=== PATIENT | male | born 1955 | race Two or more races ===

== ENCOUNTER → 2017-11-06 | Outpatient (CLI) | payer BC ==
[~2017-11-06] MED LIST: FERROUS SULFAT325 MG PO; FISH OIL PO; FLOMAX0.4 MG PO; METFORMIN HCL500 MG PO
[2017-11-07 09:21] LABS: BASOPHILS # (AUTO) 0.1 (0.0-0.1); BASOPHILS % 0.9 % (0.0-1.0); EOSINOPHILS # (AUTO) 0.2 (0.0-0.4); HEMATOCRIT 37.6 % (38.2-49.6); HEMOGLOBIN 12.9 g/dL (14.0-18.0); LYMPHOCYTES # (AUTO) 2.3 (1.0-3.2); LYMPHOCYTES % 28.3 % (18.0-39.1); MEAN CORPUSCULAR HEMOGLOBIN 29.5 pg (28-32); MEAN CORPUSCULAR HGB CONC 34.3 g/dL (31-35); MONOCYTES # (AUTO) 0.7 (0.2-0.8); MONOCYTES % 8.7 % (4.4-11.3); NEUTROPHILS # (AUTO) 4.8 (2.1-6.9); NEUTROPHILS % 58.6 % (38.7-80.0); PLATELET COUNT 216 x10e3/uL (140-360); RED BLOOD COUNT 4.37 x10e6/uL (4.3-5.7); RED CELL DISTRIBUTION WIDTH 13.4 % (11.7-14.4)
[2017-11-07 09:53] LABS: ALANINE AMINOTRANSFERASE 13 IU/L (0-55); ALBUMIN 3.8 g/dL (3.5-5.0); ALBUMIN/GLOBULIN RATIO 1.2 (0.8-2.0); ALKALINE PHOSPHATASE 39 IU/L (40-150); BLOOD UREA NITROGEN 11 mg/dL (7-26); BUN/CREATININE RATIO 13 (6-25); CALCIUM 9.7 mg/dL (8.4-10.2); CARBON DIOXIDE 27 mmol/L (22-29); CHLORIDE 107 mmol/L (98-107); CHOL/HDL RATIO 4.7 (3.9-4.7); CHOLESTEROL 194 MD/DL (0-199); CREATININE, SERUM 0.85 mg/dL (0.72-1.25); EST GLOMERULAR FILTRATION RATE > 60 ML/MIN (60-); GLUCOSE 111 mg/dL (74-118); HDL CHOLESTEROL 41 MG/DL (40-60); LDL CHOLESTEROL 114 MG/DL (60-130); SODIUM 141 mmol/L (136-145); TRIGLYCERIDES 193 MG/DL (0-149)
== END ==
LOC: LAB 10:02
PROVIDERS: ATTEND Family Medicine
DX: R73.03 Prediabetes (principal); N40.1 Benign prostatic hyperplasia with lower urinary tract symptoms; I10 Essential (primary) hypertension
CPT/HCPCS: 36415; 80053; 80061; 82652; 83036; 85025

== ENCOUNTER → 2018-04-17 | Outpatient (CLI) | payer BC ==
[2018-04-17 10:26] LABS: BASOPHILS # (AUTO) 0.1 (0.0-0.1); BASOPHILS % 0.6 % (0.0-1.0); EOSINOPHILS # (AUTO) 0.3 (0.0-0.4); EOSINOPHILS % 3.9 % (0.0-6.0); HEMATOCRIT 37.4 % (38.2-49.6); HEMOGLOBIN 13.2 g/dL (14.0-18.0); LYMPHOCYTES # (AUTO) 2.4 (1.0-3.2); LYMPHOCYTES % 30.1 % (18.0-39.1); MEAN CORPUSCULAR HEMOGLOBIN 29.7 pg (28-32); MEAN CORPUSCULAR HGB CONC 35.3 g/dL (31-35); MEAN CORPUSCULAR VOLUME 84.2 fL (81-99); MONOCYTES # (AUTO) 0.7 (0.2-0.8); MONOCYTES % 8.5 % (4.4-11.3); NEUTROPHILS # (AUTO) 4.4 (2.1-6.9); NEUTROPHILS % 56.5 % (38.7-80.0); PLATELET COUNT 212 x10e3/uL (140-360); RED BLOOD COUNT 4.44 x10e6/uL (4.3-5.7); RED CELL DISTRIBUTION WIDTH 13.2 % (11.7-14.4)
[2018-04-17 10:56] LABS: ALANINE AMINOTRANSFERASE 17 IU/L (0-55); ALBUMIN 4.2 g/dL (3.5-5.0); ALBUMIN/GLOBULIN RATIO 1.4 (0.8-2.0); ALKALINE PHOSPHATASE 48 IU/L (40-150); BLOOD UREA NITROGEN 12 mg/dL (7-26); BUN/CREATININE RATIO 14 (6-25); CALCIUM 9.5 mg/dL (8.4-10.2); CARBON DIOXIDE 23 mmol/L (22-29); CHLORIDE 106 mmol/L (98-107); CHOL/HDL RATIO 5.4 (3.9-4.7); CHOLESTEROL 190 MD/DL (0-199); CREATININE, SERUM 0.85 mg/dL (0.72-1.25); EST GLOMERULAR FILTRATION RATE > 60 ML/MIN (60-); GLUCOSE 119 mg/dL (74-118); HDL CHOLESTEROL 35 MG/DL (40-60); LDL CHOLESTEROL 116 MG/DL (60-130); SODIUM 141 mmol/L (136-145); TRIGLYCERIDES 193 MG/DL (0-149)
== END ==
LOC: LAB 10:01
PROVIDERS: ATTEND Family Medicine
DX: R73.03 Prediabetes (principal); I10 Essential (primary) hypertension; N40.1 Benign prostatic hyperplasia with lower urinary tract symptoms; Z98.890 Other specified postprocedural states
CPT/HCPCS: 36415; 80053; 80061; 83036; 84152; 84402; 85025

== ENCOUNTER → 2018-08-29 | Outpatient (CLI) | payer BC ==
[2018-08-29 10:01] LABS: BASOPHILS # (AUTO) 0.1 (0.0-0.1); BASOPHILS % 0.9 % (0.0-1.0); EOSINOPHILS # (AUTO) 0.2 (0.0-0.4); EOSINOPHILS % 2.6 % (0.0-6.0); HEMOGLOBIN 12.8 g/dL (14.0-18.0); LYMPHOCYTES % 25.7 % (18.0-39.1); MEAN CORPUSCULAR HGB CONC 33.7 g/dL (31-35); MONOCYTES # (AUTO) 0.7 (0.2-0.8); MONOCYTES % 9.2 % (4.4-11.3); NEUTROPHILS # (AUTO) 4.8 (2.1-6.9); NEUTROPHILS % 61.3 % (38.7-80.0); PLATELET COUNT 215 x10e3/uL (140-360); RED BLOOD COUNT 4.42 x10e6/uL (4.3-5.7); RED CELL DISTRIBUTION WIDTH 13.4 % (11.7-14.4)
[2018-08-29 10:24] LABS: ALANINE AMINOTRANSFERASE 22 IU/L (0-55); ALBUMIN 4.1 g/dL (3.5-5.0); ALBUMIN/GLOBULIN RATIO 1.7 (0.8-2.0); ALKALINE PHOSPHATASE 40 IU/L (40-150); ANION GAP 14.5 mmol/L (8-16); BLOOD UREA NITROGEN 12 mg/dL (7-26); BUN/CREATININE RATIO 14 (6-25); CALCIUM 9.3 mg/dL (8.4-10.2); CARBON DIOXIDE 25 mmol/L (22-29); CHLORIDE 103 mmol/L (98-107); CREATININE, SERUM 0.85 mg/dL (0.72-1.25); EST GLOMERULAR FILTRATION RATE > 60 ML/MIN (60-); GLUCOSE 115 mg/dL (74-118); LIPASE 63 U/L (8-78); POTASSIUM 4.5 mmol/L (3.5-5.1); SODIUM 138 mmol/L (136-145)
== END ==
LOC: LAB 09:36
PROVIDERS: ATTEND Family Medicine
DX: R73.03 Prediabetes (principal); I10 Essential (primary) hypertension; N40.1 Benign prostatic hyperplasia with lower urinary tract symptoms; Z98.890 Other specified postprocedural states
CPT/HCPCS: 36415; 80053; 83036; 83690; 84152; 84402; 85025

== ENCOUNTER → 2018-12-26 | Day surgery (SDC) | payer BC ==
[~2018-12-26] MED LIST changes: +FENTANYL CITRATE/PF 100MCG/2 ML INJ ONE; +FERROUS SULFAT325 M1 PO; +FINASTERIDE5 MG PO; +HYOSCYAMINE SULFATE 0.5 MG/ML INJ ONE; +LISINOPRIL2.5 MG PO; +MIDAZOLAM HCL 2 MG/2 ML VIAL ONE; +PROPOFOL IV EMULSION 10 MG/ML 50 ML VIAL ONE
--- OUTSIDE RECORDS SUMMARY | 2018-12-26 05:59 | XMS REPORT ---
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 Assessment Benign non-nodular prostatic hyperplasia with lower urinary tract symptoms N40.1 Active Assessment Other specified postprocedural states Z98.890 Active Problem HTN (hypertension), benign I10 Active Problem Benign non-nodular prostatic hyperplasia with lower urinary tract symptoms N40.1 Active Problem Personal history of colonic polyps Z86.010 Active Assessment Pre-diabetes R73.03 Active Assessment HTN (hypertension), benign I10 Active Problem 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 Problem Pre-diabetes R73.03 Active Medications Medication Code System Code Instructions Start Date End Date Status Dosage Tamsulosin HCl [facility] 29733615956 0.4MG Orally Once a day May 07, 2018 Active take two capsules by mouth once daily Proscar [facility] 21584042813 5 MG Orally Once a day Active 1 tablet Iron [facility] 19025124177 325 (65 Fe) MG Orally Once a day Active 1 tablet Flomax [facility] [address]-05 0.4 MG Orally daily Active 2 tablet Metformin HCl [facility] 30165318725 500 MG Orally Twice a day Active 1 tablet with meals Lisinopril [facility] 83370929661 10MG Orally Once a day Active 1 tablet Vital Signs Date/Time: November 08, 2017 BMI 26.15 Index Weight 172 lbs Height 68 in Temperature 98.9 F Blood Pressure Diastolic 90 mm Hg Blood Pressure Systolic 139 mm Hg Results No Known Results Summary Purpose eClinicalWorks Submission
--- OUTSIDE RECORDS SUMMARY | 2018-12-26 05:59 | XMS REPORT ---
Author Stepan Alonso [facility] eClinicalWorks Address Unknown Phone Unavailable Care Team Providers Care Product Promoter Sales Person Name Role Phone Stepan Jaramillo Unavailable Allergies, Adverse Reactions, Alerts Substance Reaction Event Type SEGUNDO inhibitir cough Non Drug Allergy Encounters Encounter Location Date Follow-up for mutiple problems Stepan Jaramillo MD May 10, 2015 Follow-up for mutiple problems Stepan Jaramillo MD Aug 27, 2014 Follow-up for mutiple problems Stepan Jaramillo MD December 15, 2014 Follow-up for mutiple problems Stepan Jaramillo MD Mar 23, 2015 Problems Problem Type Condition ICD-9 Code Onset Dates Condition Status Problem BPH - Hypertrophy (benign) of prostate without urinary obstruction and other lower urinary tract symptoms [LUTS] 600.00 Active Problem Diabetes mellitus without mention of complication, type II or unspecified type, uncontrolled 250.02 Active Problem anemia - Unspecified anemia 285.9 Active Problem anemia - 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 Problem Impotence of organic origin 607.84 Active Problem Laceration of right ear S01.311A Active Problem Mixed hyperlipidemia 272.2 Active Problem anemia - 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.1 Active Problem Other seborrheic dermatitis 690.18 Active Problem Personal history of colonic polyps V12.72 Active Assessment Dandruff L21.0 Active Assessment Laceration of right orbital rim without complication S01.111A Active Assessment Laceration of right ear S01.311A Active Problem HTN Hypertension - Unspecified essential hypertension 401.9 Active Medications Medication Code System Code Instructions Start Date End Date Status Dosage Ferrous Sulfate [facility] [address]-86 325 (65 Fe) MG Orally Once a day December 24, 2013 Active 1 tablet Metformin HCl [facility] 04061202108 500MG Active take one tablet by mouth twice daily with meals Finasteride [facility] [address]-14 5 MG Orally once every night Mar 23, 2015 September 19, 2015 Active 1 tablet Tamsulosin HCl [facility] 08630103840 0.4MG Jun 13, 2015 Active take 2 capsules by mouth daily 30 minutes after the same meal each day Nizoral Unknown 0 2% applied topically as directed Mar 23, 2015 September 19, 2015 Active as directed Testosterone Cypionate [facility] [address]-21 200 MG/ML Intramuscular every 2 weeks December 15, 2014 Active 1 ml Cialis [facility] [address]-43 5 MG Orally Once a day Jun 27, 2013 Active 1 tablet Social History Social History Element Qualifiers Date Reported Tobacco Use: . Status: Never smoker May 10, 2015 Do you drink alcohol? . Status: No May 10, 2015 Vital Signs Date/Time: May 10, 2015 Weight 174.8 lbs Height 67.5 in Temperature 98.6 F Cardiac Monitoring Heart Rate 80 /min Blood Pressure Diastolic 82 mm Hg Blood Pressure Systolic 143 mm Hg Respiratory Rate 18 /min Summary Purpose eClinicalWorks Submission
--- OUTSIDE RECORDS SUMMARY | 2018-12-26 05:59 | XMS REPORT ---
Author Author Mariana Yancey [facility] eClinicalWorks Address Unknown Phone Unavailable Care Team Providers Care Financial Services Intern Name Role Phone Mariana Yancey CP Unavailable Allergies, Adverse Reactions, Alerts Substance Reaction Event Type N.K.D.A. 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 Problem Pre-diabetes R73.03 Active Problem Benign non-nodular prostatic hyperplasia with lower urinary tract symptoms N40.1 Active Assessment Pre-diabetes R73.03 Active Assessment 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 Assessment Encounter to establish care Z76.89 Active Assessment Benign non-nodular prostatic hyperplasia with lower urinary tract symptoms N40.1 Active Medications Medication Code System Code Instructions Start Date End Date Status Dosage Proscar [facility] [address]-94 5 MG Orally Once a day Active 1 [facility] [address] 325 (65 Fe) MG Orally Once a day Active 1 tablet Flomax [facility] [address]-66 0.4 MG Orally daily Mar 13, 2017 Active 1 tablet Metformin HCl [facility] [address]-26 500 MG Orally Twice a day Active 1 tablet with meals Social History Social History Element Qualifiers Date Reported Tobacco Use: . Are you a: never smoker September 14, 2016 Marital Status: . September 14, 2016 Caffeine intake? . Status: No September 14, 2016 Do you exercise? . Answer: Yes September 14, 2016 Do you drink alcohol? . Do you drink alcohol? No September 14, 2016 Occupation: . Employed September 14, 2016 Vital Signs Date/Time: September 14, 2016 Weight 175 lbs Height 68 in Temperature 98.1 F Blood Pressure Diastolic 100 mm Hg Blood Pressure Systolic 156 mm Hg Summary Purpose eClinicalWorks Submission
--- OUTSIDE RECORDS SUMMARY | 2018-12-26 05:59 | XMS REPORT ---
Author Stepan Alonso [facility] eClinicalWorks Address Unknown Phone Unavailable Care Team Providers Care Sales Order Administrator Name Role Phone Stepan Jaramillo Unavailable Encounters Encounter Location Date Follow-up for mutiple problems Stepan Jaramillo MD May 10, 2015 Unknown Stepan Jaramillo MD Jul 07, 2015 Follow-up for mutiple problems Stepan Jaramillo MD Aug 27, 2014 Follow-up for mutiple problems Stepan Jaramillo MD December 15, 2014 Follow-up for mutiple problems Stepan Jaramillo MD Mar 23, 2015 Problems Problem Type Condition ICD-9 Code Onset Dates Condition Status Problem anemia - Unspecified anemia 285.9 Active Problem anemia - 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.1 Active Problem Diabetes mellitus without mention of complication, type II or unspecified type, uncontrolled 250.02 Active Problem Laceration of right ear S01.311A Active Problem anemia - 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 Problem DM II (diabetes mellitus, type II), controlled E11.9 Active Problem Personal history of colonic polyps V12.72 Active Problem Mixed hyperlipidemia 272.2 Active Problem Impotence of organic origin 607.84 Active Problem Other seborrheic dermatitis 690.18 Active Assessment DM II (diabetes mellitus, type II), controlled E11.9 Active Problem HTN Hypertension - Unspecified essential hypertension 401.9 Active Problem BPH - Hypertrophy (benign) of prostate without urinary obstruction and other lower urinary tract symptoms [LUTS] 600.00 Active Social History Social History Element Qualifiers Date Reported Tobacco Use: . Status: Never smoker Aug 13, 2015 Do you drink alcohol? . Status: No Aug 13, 2015 Summary Purpose eClinicalWorks Submission
--- OUTSIDE RECORDS SUMMARY | 2018-12-26 05:59 | XMS REPORT ---
Author Author Mariana Yancey Organization [employer] Address Unknown Phone Unavailable Care Team Providers Care Application Lead Name Role Phone Mariana Yancey CP Unavailable Allergies, Adverse Reactions, Alerts Substance Reaction Event Type N.K.D.A. 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 Assessment Cough R05 Active Assessment Low testosterone in male R79.89 Active Problem HTN (hypertension), benign I10 Active Problem Benign non-nodular prostatic hyperplasia with lower urinary tract symptoms N40.1 Active Problem Personal history of colonic polyps Z86.010 Active Assessment Pre-diabetes R73.03 Active Problem 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 Problem Pre-diabetes R73.03 Active Medications Medication Code System Code Instructions Start Date End Date Status Dosage Metformin HCl [facility] 64261787898 500 MG Orally Twice a day Active 1 tablet with meals Iron [facility] 12113971206 325 (65 Fe) MG Orally Once a day Active 1 tablet Testosterone Cypionate [facility] 67847636234 100 MG/ML Intramuscular q 2 weeks October 22, 2018 Active 1 ml Proscar [facility] 69510447715 5 MG Orally Once a day Active 1 tablet Lisinopril [facility] 97631105999 10MG Orally Once a day Active 1 tablet Flonase [facility] 94745282243 50 MCG/ACT Nasally Once a day Apr 23, 2018 Active 1 spray in each nostril Flomax [facility] [address]-76 0.4 MG Orally daily Active 2 tablet Vital Signs Date/Time: October 22, 2018 BMI 26.15 Index Weight 172 lbs Height 68 in Temperature 98.1 F Blood Pressure Diastolic 85 mm Hg Blood Pressure Systolic 130 mm Hg Results No Known Results Summary Purpose eClinicalWorks Submission
--- OUTSIDE RECORDS SUMMARY | 2018-12-26 05:59 | XMS REPORT | CCD ---
Author Author Auto Generated Organization [facility] Address Unknown Phone Unavailable Care Team Providers Care Head Soft Sugar Operator Name Role Phone Kaylie Yuliya CP Unavailable Miesha Mckinley CP Unavailable Luis Enrique Freeman PaulamaggiemaidaMoni RP [employer], Login CP Unavailable Lopez Ramires CP [phone] Velma Swartz CP [phone] Stepan Jaramillo CP Larisa Mcnair CP Unavailable Allergies, Adverse Reactions, Alerts Substance Reaction Status NKDA ?? Active Medications Medication Instructions Start Date End Date Status metFORmin 500 mg 500 mg, 1 tab, PO, BID, 03/22/2011 ?? Ordered oral tablet Substitution Allowed Sodium Chloride 1,000 mL, Rate: 40 ml/hr, Infuse 03/22/2011 03/22/2011 Discontinued 0.45% IV 1,000 mL over: 25 hr, Route: IV, Total 1,000 mL Volume: 1,000, Start date: 03/22/11 9:43:00, Duration: 30 day, Stop date: 04/21/11 9:42:00 Avodart PO, Daily, Substitution Allowed 03/22/2011 ?? Ordered Vital Signs Most recent to oldest [Reference Range]: 1 2 3 Height 172.72 cm (03/22/2011 09:11:00) ? Systolic Blood Pressure [90-140 mmHg] 123 mmHg (03/22/2011 10:30:00) ?? 125 mmHg (03/22/2011 10:15:00) ?? 126 mmHg (03/22/2011 10:00:00) ?? Diastolic Blood Pressure [60-90 mmHg] 74 mmHg (03/22/2011 10:30:00) ?? 79 mmHg (03/22/2011 10:15:00) ?? 67 mmHg (03/22/2011 10:00:00) ?? Respiratory Rate [14-20 BRMIN] 18 BRMIN (03/22/2011 10:30:00) ?? 18 BRMIN (03/22/2011 10:15:00) ?? 18 BRMIN (03/22/2011 10:00:00) ?? Peripheral Pulse Rate [60-100 bpm] 63 bpm (03/22/2011 10:30:00) ?? 62 bpm (03/22/2011 10:15:00) ?? 74 bpm (03/22/2011 10:00:00) ?? Weight 75.000 kg (03/22/2011 09:11:00) ?
--- OUTSIDE RECORDS SUMMARY | 2018-12-26 05:59 | XMS REPORT ---
Author Author Mariana Yancey Organization [employer]Works Address Unknown Phone Unavailable Care Team Providers Care Real Estate Executive Assistant Name Role Phone Mariana Yancey CP Unavailable Allergies, Adverse Reactions, Alerts Substance Reaction Event Type N.K.D.A. 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 Problem 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 Problem Pre-diabetes R73.03 Active Medications Medication Code System Code Instructions Start Date End Date Status Dosage Metformin HCl [facility][NOTE 3] 78703718832 500 MG Orally Twice a day Active 1 tablet with meals Lisinopril [facility][NOTE 3] 09700241816 10MG Orally Once a day Active 1 tablet Iron [facility][NOTE 3] 02247879748 325 (65 Fe) MG Orally Once a day Active 1 tablet Flomax [facility][NOTE 3] [address]-12 0.4 MG Orally daily Active 2 tablet Flonase [facility][NOTE 3] 00934105950 50 MCG/ACT Nasally Once a day Apr 23, 2018 Active 1 spray in each nostril Tamsulosin HCl [facility][NOTE 3] 65252009793 0.4MG Orally Once a day May 07, 2018 Active take two capsules by mouth once daily Proscar [facility][NOTE 3] 11584199876 5 MG Orally Once a day Active 1 tablet Vital Signs Date/Time: Apr 23, 2018 BMI 25.85 Index Weight 170 lbs Height 68 in Temperature 97.9 F Blood Pressure Diastolic 86 mm Hg Blood Pressure Systolic 155 mm Hg Results No Known Results Summary Purpose eClinicalWorks Submission
--- OUTSIDE RECORDS SUMMARY | 2018-12-26 05:59 | XMS REPORT ---
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
--- OUTSIDE RECORDS SUMMARY | 2018-12-26 05:59 | XMS REPORT ---
Author Author Mariana Yancey Organization [employer]ClinicalWorks Address Unknown Phone Unavailable Care Team Providers Care Revenue Field Auditor Name Role Phone Mariana Yancey CP Unavailable Encounters Encounter Location Date Follow-up for mutiple problems Stepan Jaramillo MD May 10, 2015 Unknown Stepan Jaramillo MD Jul 07, 2015 Unknown [place] September 15, 2016 Follow-up for mutiple problems Stepan Jaramillo [...] lower urinary tract symptoms N40.1 Active Problem Benign non-nodular prostatic hyperplasia with lower urinary tract symptoms N40.1 Active Medications Medication Code System Code Instructions Start Date End Date Status Dosage Flomax [facility] [address]-00 0.4 MG Orally daily December 14, 2016 Active 2 tablet Social History Social History Element Qualifiers Date Reported Tobacco Use: . Are you a: never smoker September 14, 2016 Marital Status: . September 14, 2016 Caffeine intake? . Status: No September 14, 2016 Do you exercise? . Answer: Yes September 14, 2016 Do you drink alcohol? . Do you drink alcohol? No September 14, 2016 Occupation: . Employed September 14, 2016 Summary Purpose eClinicalWorks Submission
--- OUTSIDE RECORDS SUMMARY | 2018-12-26 05:59 | XMS REPORT ---
Author Author Mariana Yancey Organization eClinicalWorks Address Unknown Phone Unavailable Care Team Providers Care Cold Header Name Role Phone Mariana Yancey CP Unavailable Allergies No Known Allergies Problems Problem Type Condition Code Onset Dates Condition Status Assessment Benign non-nodular prostatic hyperplasia with lower urinary tract symptoms N40.1 Active Assessment Other specified postprocedural states Z98.890 Active Assessment Pre-diabetes R73.03 Active Problem HTN (hypertension), benign I10 Active Problem Benign non-nodular prostatic hyperplasia with lower urinary tract symptoms N40.1 Active Problem Personal history of colonic polyps Z86.010 Active Assessment HTN (hypertension), benign I10 Active Problem 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
--- OUTSIDE RECORDS SUMMARY | 2018-12-26 05:59 | XMS REPORT ---
Author Stepan Alonso [facility] eClinicalWorks Address Unknown Phone Unavailable Care Team Providers Care Locksmith Helper Name Role Phone Stepan Jaramillo Unavailable Allergies, [...] ICD-9 Code Onset Dates Condition Status Problem HTN Hypertension - Unspecified essential hypertension 401.9 Active Problem anemia - Unspecified anemia 285.9 Active Problem BPH - Hypertrophy (benign) of prostate without urinary obstruction and other lower urinary tract symptoms [LUTS] 600.00 Active Problem Impotence of organic origin 607.84 Active Problem Other seborrheic dermatitis 690.18 Active Problem anemia - 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 Problem anemia - 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.1 Active Problem Diabetes mellitus without mention of complication, type II or unspecified type, uncontrolled 250.02 Active Problem Personal history of colonic polyps V12.72 Active Problem Mixed hyperlipidemia 272.2 Active Assessment anemia - 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 Assessment BPH - Hypertrophy (benign) of prostate without urinary obstruction and other lower urinary tract symptoms [LUTS] 600.00 Active Assessment Other seborrheic dermatitis 690.18 Active Assessment Diabetes mellitus without mention of complication, type II or unspecified type, uncontrolled 250.02 Active Medications Medication Code System Code Instructions Start Date End Date Status Dosage [facility]osterone [facility] [address]-83 200 MG/ML Intramuscular every 2 weeks December 15, 2014 Active 1 ml Finasteride [facility] [address]-79 5 MG Orally once every night Mar 23, 2015 September 19, 2015 Active 1 tablet Metformin HCl [facility] 66508734109 500MG Active take one tablet by mouth twice daily with meals Ferrous Sulfate [facility] [address]-85 325 (65 Fe) MG Orally Once a day December 24, 2013 Active 1 tablet Cialis [facility] [address]-29 5 MG Orally Once a day Jun 27, 2013 Active 1 tablet Nizoral Unknown 0 2% applied topically as directed Mar 23, 2015 September 19, 2015 Active as directed Tamsulosin HCl [facility] 18281198750 0.4MG Jun 13, 2015 Active take 2 capsules by mouth daily 30 minutes after the same meal each day Social History Social History Element Qualifiers Date Reported Tobacco Use: . Status: Never smoker Mar 23, 2015 Do you drink alcohol? . Status: No Mar 23, 2015 Vital Signs Date/Time: Mar 23, 2015 Weight 178.1 lbs Height 67.5 in Temperature 98.5 F Cardiac Monitoring Heart Rate 68 /min Blood Pressure Diastolic 70 mm Hg Blood Pressure Systolic 140 mm Hg Respiratory Rate 20 /min Summary Purpose eClinicalWorks Submission
--- OUTSIDE RECORDS SUMMARY | 2018-12-26 05:59 | XMS REPORT ---
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
--- OUTSIDE RECORDS SUMMARY | 2018-12-26 05:59 | XMS REPORT ---
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
--- OUTSIDE RECORDS SUMMARY | 2018-12-26 05:59 | XMS REPORT | Continuity of Care Document ---
Author Author [facility] Interface Address Unknown Phone Unavailable Problems Problem Status Onset Date Classification Date Reported Comments Source HX COLON POLYPS Active 01/24/2011 [place] HTN , benign Active Diagnosis 10/29/2018 Enayet Ralonniem Benign non-nodular prostatic hyperplasia with lower urinary tract symptoms Active Diagnosis 10/29/2018 Enalex Vaughn Personal history of colonic polyps Active Problem 10/29/2018 Enalex Vaughn Iron deficiency anemia secondary to inadequate dietary iron intake Active Diagnosis 10/29/2018 Enalex Vaughn Pre-diabetes Active Diagnosis 10/29/2018 Enalex Vaughn Other specified postprocedural states Active Diagnosis 08/29/2018 Jack Vaughn Cough Active Diagnosis 10/29/2018 Enalex Vaughn HTN Hypertension - Unspecified essential hypertension Active Problem 08/21/2015 Stepan Jaramillo anemia - Unspecified anemia Active Problem 08/21/2015 Stepan Jaramillo BPH - Hypertrophy of prostate without urinary obstruction and other lower urinary tract symptoms [LUTS] Active Problem 08/21/2015 Stepan Jaramillo Impotence of organic origin Active Problem 08/21/2015 Stepan Jaramillo Other seborrheic dermatitis Active Problem 08/21/2015 Stepan Jaramillo anemia - Iron deficiency anemia secondary to blood loss Active Problem 08/21/2015 Stepan Jaramillo anemia - Iron deficiency anemia secondary to inadequate dietary iron intake Active Problem 08/21/2015 Stepan Jaramillo Diabetes mellitus without mention of complication, type II or unspecified type, uncontrolled Active Problem 08/21/2015 Stepan Jaramillo Personal history of colonic polyps Active Problem 08/21/2015 Stepan Jaramillo Mixed hyperlipidemia Active Problem 08/21/2015 Stepan Jaramillo Laceration of right ear Active Problem 08/21/2015 Stepan Jaramillo Dandruff Active Diagnosis 05/12/2015 Stepan Jaramillo Laceration of right orbital rim without complication Active Diagnosis 05/12/2015 Stepan Jaramillo Low testosterone in male Active Diagnosis 10/29/2018 Jack Vaughn DM II , controlled Active Problem 08/21/2015 Stepan Jaramillo Encounter to establish care Active Diagnosis 09/17/2016 Enalex Garciam Medications Medication Details Route Status Patient Instructions Ordering Provider Order Date Source Testosterone Cypionate 1 ml Intramuscular Active 100 MG/ML Intramuscular q 2 weeks [facility] 10/22/2018 Jack Garciam Tamsulosin HCl take two capsules by mouth once daily Orally Active 0.4MG Orally Once a day [facility] 05/07/2018 Jack Garciam Flonase 1 spray in each nostril Nasally Active 50 MCG/ACT Nasally Once a day [facility] 04/23/2018 Jack Garciam Lisinopril 1 tablet Orally Active 10 mg Orally Once a day [facility] 07/19/2017 Roqueet him Flomax 1 tablet Orally Active 0.4 MG Orally daily [facility] 03/13/2017 Jack Garciam Flomax 2 tablet Orally Active 0.4 MG Orally daily [facility] 12/14/2016 Jack Vaughn Tamsulosin HCl take 2 capsules by mouth daily 30 minutes after the same meal each day NA Active 0.4MG [facility] 06/13/2015 Stepan Jaramillo Finasteride 1 tablet Orally Active 5 MG Orally once every night [facility] 03/23/2015 Stepan Jaramillo Nizoral as directed applied topically Active 2% applied topically as directed [facility] 03/23/2015 Stepan Jaramillo Testosterone Cypionate 1 ml Intramuscular Active 200 MG/ML Intramuscular every 2 weeks [facility] 12/15/2014 Stepan Jaramillo Ferrous Sulfate 1 tablet Orally Active 325 (65 Fe) MG Orally Once a day [facility] 12/24/2013 Stepan Jaramillo Cialis 1 tablet Orally Active 5 MG Orally Once a day [facility] 06/27/2013 Stepan Jaramillo Sodium Chloride 0.45% IV 1,000 mL 1,000 mL 1,000 mL, Rate: 40 ml/hr, Infuse over: 25 hr, Route: IV, Total Volume: 1,000, Start date: 03/22/11 9:43:00, Duration: 30 day, Stop date: 04/21/11 9:42:00 IV No Longer Active Pete 03/22/2011 [facility] metFORmin 500 mg oral tablet 500 mg, 1 tab, PO, BID, Substitution Allowed PO Active 03/22/2011 [facility] Avodart PO, Daily, Substitution Allowed PO Active 03/22/2011 [facility] Flomax 2 tablet Orally Active 0.4 MG Orally daily [facility] Proscar 1 tablet Orally Active 5 MG Orally Once a day [facility] Iron 1 tablet Orally Active 325 (65 Fe) MG Orally Once a day [facility] Metformin HCl 1 tablet with meals Orally Active 500 MG Orally Twice a day [facility] Lisinopril 1 tablet Orally Active 10MG Orally Once a day [facility] Metformin HCl take one tablet by mouth twice daily with meals NA Active 500MG Ella Jaramillo Proscar 1 tablet Orally Active 5 MG Orally Once a day [facility] Iron 1 tablet Orally Active 325 (65 Fe) MG Orally Once a day [facility] Metformin HCl 1 tablet with meals Orally Active 500 MG Orally Twice a day [facility] Allergies, Adverse Reactions, Alerts Substance Category Reaction Severity Reaction type Status Date Reported Comments Source SEGUNDO inhibitir Adverse Reaction cough Adverse Reaction Active 05/10/2015 Stepan Jaramillo N.K.D.A. Adverse Reaction Info Not Available Adverse Reaction Active 10/22/2018 Enayet Rahim Immunizations Immunization Date Given Site Status Last Updated Comments Source Results Order Name Results Value Reference Range Date Interpretation Comments Source Vital Signs Vital Sign Value Date Comments Source Weight 172 10/22/2018 Enayet Rahim Height 68 10/22/2018 Enayet Rahim Temperature Oral (F) 98.1 F 10/22/2018 Enayet Rahim Diastolic (mm Hg) 85 10/22/2018 Enayet Rahim Systolic (mm Hg) 130 10/22/2018 Enayet Rahim Weight 170 04/23/2018 Enayet Rahim Height 68 04/23/2018 Enayet Rahim Temperature Oral (F) 97.9 F 04/23/2018 Enayet Rahim Diastolic (mm Hg) 86 04/23/2018 Enayet Rahim Systolic (mm Hg) 155 04/23/2018 Enayet Rahim Weight 172 11/08/2017 Enayet Rahim Height 68 11/08/2017 Enayet Rahim Temperature Oral (F) 98.9 F 11/08/2017 Enayet Rahim Diastolic (mm Hg) 90 11/08/2017 Enayet Rahim Systolic (mm Hg) 139 11/08/2017 Enayet Rahim Weight 175 09/14/2016 Enayet Rahim Height 68 09/14/2016 Enayet Rahim Temperature Oral (F) 98.1 F 09/14/2016 Enayet Rahim Diastolic (mm Hg) 100 09/14/2016 Enayet Rahim Systolic (mm Hg) 156 09/14/2016 Enayet Rahim Weight 174.8 05/10/2015 Kaisen Fang Height 67.5 05/10/2015 Kaisen Fang Temperature Oral (F) 98.6 F 05/10/2015 Kaisen Fang Heart Rate 80 05/10/2015 Kaisen Fang Diastolic (mm Hg) 82 05/10/2015 Kaisen Fang Systolic (mm Hg) 143 05/10/2015 Kaisen Fang Respitory Rate 18 05/10/2015 Kaisen Fang Weight 178.1 03/23/2015 Kaisen Fang Height 67.5 03/23/2015 Kaisen Fang Temperature Oral (F) 98.5 F 03/23/2015 Kaisen Fang Heart Rate 68 03/23/2015 Kaisen Fang Diastolic (mm Hg) 70 03/23/2015 Kaisen Fang Systolic (mm Hg) 140 03/23/2015 Kaisen Fang Respitory Rate 20 03/23/2015 Kaisen Fang Systolic (mm Hg) 123.0 03/22/2011 [facility] Diastolic (mm Hg) 74.0 03/22/2011 [facility] Respitory Rate 18.0 03/22/2011 [facility] Peripheral Pulse Rate 63.0 03/22/2011 [facility] Diastolic (mm Hg) 79.0 03/22/2011 [facility] Respitory Rate 18.0 03/22/2011 [facility] Systolic (mm Hg) 125.0 03/22/2011 [facility] Peripheral Pulse Rate 62.0 03/22/2011 [facility] Peripheral Pulse Rate 74.0 03/22/2011 [facility] Diastolic (mm Hg) 67.0 03/22/2011 [facility] Systolic (mm Hg) 126.0 03/22/2011 [facility] Respitory Rate 18.0 03/22/2011 [facility] Height 172.72 cm 03/22/2011 [facility] Weight 75.0 03/22/2011 [facility] Encounters Location Location Details Encounter Type Encounter Number Reason For Visit Attending Provider ADM Date DC Date Status Source [facility] KENDAL [id number] MORENA RAMOS 03/22/2011 03/22/2011 Active [facility] Stepan Jaramillo MD Follow-up for mutiple problems [id number] 08/27/2014 08/27/2014 Stepan Jaramillo MD Follow-up for mutiple problems [id number] 08/27/2014 08/27/2014 Steapn Jaramillo MD Follow-up for mutiple problems [id number] 08/27/2014 08/27/2014 Jack Jaramillo MD Follow-up for mutiple problems [id number] 08/27/2014 08/27/2014 Stepan Jaramillo MD Follow-up for mutiple problems [id number] 08/27/2014 08/27/2014 Jack Jaramillo MD Follow-up for mutiple problems [id number] 12/15/2014 12/15/2014 Stepan Jaramillo MD Follow-up for mutiple problems [id number] 12/15/2014 12/15/2014 Stepan Jaramillo MD Follow-up for mutiple problems [id number] 12/15/2014 12/15/2014 Jack Jaramillo MD Follow-up for mutiple problems [id number] 12/15/2014 12/15/2014 Stepan Jaramillo MD Follow-up for mutiple problems [id number] 12/15/2014 12/15/2014 Jack Jaramillo MD Follow-up for mutiple problems [id number] 03/23/2015 03/23/2015 Stepan Jaramillo MD Follow-up for mutiple problems [id number] 03/23/2015 03/23/2015 Stepan Jaramillo MD Follow-up for mutiple problems [id number] 03/23/2015 03/23/2015 Jack Jaramillo MD Follow-up for mutiple problems [id number] 03/23/2015 03/23/2015 Stepan Jaramillo MD Follow-up for mutiple problems [id number] 03/23/2015 03/23/2015 Jack Jaramillo MD Follow-up for mutiple problems [id number] 05/10/2015 05/10/2015 Stepan Jaramillo MD Follow-up for mutiple problems [id number] 05/10/2015 05/10/2015 Jack Jaramillo MD Follow-up for mutiple problems [id number] 05/10/2015 05/10/2015 Stepan Jaramillo MD Follow-up for mutiple problems [id number] 05/10/2015 05/10/2015 Jack Jaramillo MD Unknown [id number] 07/07/2015 07/07/2015 Jack Jaramillo MD Unknown [id number] 07/07/2015 07/07/2015 Stepan Jaramillo MD Unknown [id number] 07/07/2015 07/07/2015 Jack Vaughn MD, PA NEW PT [id number] 09/14/2016 09/14/2016 Jack Vaughn MD, PA Unknown [id number] 09/15/2016 09/15/2016 Jack Vaughn MD, PA Unknown [id number] 09/15/2016 09/15/2016 Jack Vaughn Procedures Procedure Code Date Perfomer Comments Source
--- OUTSIDE RECORDS SUMMARY | 2018-12-26 05:59 | XMS REPORT ---
Author Author Mariana Yancey Organization [employer] Address Unknown Phone Unavailable Care Team Providers Care Continuous Churn Buttermaker Name Role Phone Mariana Yancey CP Unavailable [...] Start Date End Date Status Dosage Lisinopril [facility] [id number] 10 mg Orally Once a day Jul 19, 2017 Active 1 tablet Results No Known Results Summary Purpose [employer] Submission
[2018-12-26 08:55] VITALS: BP 115/85
--- NOTE | 2018-12-26 09:55 | Operative Report ---
DATE OF PROCEDURE: 12/26/2018 SURGEON: Raymond Gamino MD PROCEDURES: Colonoscopy and polypectomy. INDICATIONS FOR COLONOSCOPY: Surveillance colonoscopy, personal history of colon polyps. MEDICATION: The patient was done under MAC, please see anesthesiologist's note. PROCEDURE IN DETAIL: With the patient in left lateral decubitus position, a flexible fiberoptic Olympus colonoscope was inserted into the rectum with ease and was advanced all the way to the cecum. The mucosa overlying the cecum appeared to be within normal limits. A single diverticulum was noted in the proximal ascending colon. The rest of the ascending, transverse, descending and sigmoid appeared to be within normal limits. Three minute polyps were hot biopsied from the rectum. The scope was then retroflexed into the distal rectum and small internal hemorrhoids were noted, none of which was actively bleeding. The scope was then straightened out, it was subsequently withdrawn. The patient tolerated procedure well. IMPRESSION: 1. Rectal polyps x3, hot biopsied. 2. Internal hemorrhoids none actively bleeding. PLAN: Follow up histology. Initiate high-fiber, low-fat diet. Initiate high-fiber supplement. The patient might benefit from a followup colonoscopy in 5 years. Raymond Gamino MD [facility] [place] [place][id number] cc: Mariana Yancey MD
== END | disposition home or self-care (01) ==
LOC: OR 05:52
PROVIDERS: ATTEND Internal Medicine Gastroenterology
DX: Z09 Encounter for follow-up examination after completed treatment for conditions other than malignant neoplasm (principal); K62.1 Rectal polyp; K64.8 Other hemorrhoids; E11.9 Type 2 diabetes mellitus without complications; I10 Essential (primary) hypertension; R00.1 Bradycardia, unspecified; Z01.810 Encounter for preprocedural cardiovascular examination; Z79.84 Long term (current) use of oral hypoglycemic drugs; Z68.25 Body mass index [BMI] 25.0-25.9, adult
CPT/HCPCS: 36415; 45384; 82948; 93005; J1980; J2250; J2704; 45378